=== PATIENT | female | born 1985 | race Caucasian/White ===

== ENCOUNTER 2021-04-16 06:10 | Inpatient (IN) | payer OTHER ==
[2021-04-16] MEDS ORDERED: ELECTROLYTE-148 SOLN 500 ML IV ONE (06:30)
[2021-04-16 06:46] VITALS: BMI 31.1
[2021-04-16] MEDS ORDERED: CITRIC ACID/SODIUM CITRATE 30 ML UNIT-DOSE CUP PO ONE (07:00)
[2021-04-16] MEDS ORDERED: ELECTROLYTE-148 SOLN 1,000 ML IV SCH (07:00)
[2021-04-16] MEDS ORDERED: PHENYLEPHRINE HCL 10 MG/1 ML SINGLE DOSE VIAL ONE (08:03)
[2021-04-16] MEDS ORDERED: morphine SULFATE (PF) 1 MG/2 ML SYRINGE ONE (08:03)
[2021-04-16] MEDS ORDERED: ePHEDrine SULFATE 50 MG/1 ML AMPULE ONE (08:03)
[2021-04-16] MEDS ORDERED: SODIUM CHLORIDE 0.9% P/F 10 ML VIAL IJ ONE (08:03)
[2021-04-16] MEDS ORDERED: OXYTOCIN 20 UNITS in 0.9% NS 20 UNIT/1,000 ML INFUS.BAG IV ONE (08:08)
[2021-04-16] MEDS: OXYTOCIN 20 UNITS in 0.9% NS 20 UNIT/1,000 ML INFUS.BAG IV SCH ×2 (08:40→16:00)
[2021-04-16] MEDS ORDERED: ONDANSETRON 4 MG/2 ML VIAL IVPUSH PRN (09:27)
[2021-04-16] MEDS ORDERED: morphine SULFATE/PF 1 MG/2 ML (2cc Syringe - QUVA) EP ONE (09:27)
[2021-04-16] MEDS ORDERED: METHYLERGONOVINE MALEATE 0.2 MG/1 ML AMP IM PRN (10:04)
[2021-04-16] MEDS ORDERED: ACETAMINOPHEN 325 MG TABLET (FP) PO PRN (10:04)
[2021-04-16] MEDS ORDERED: IBUPROFEN 800 MG/8 ML IJ IVPB PRN (10:04)
[2021-04-16] MEDS ORDERED: IBUPROFEN 800 MG/8 ML IJ IVPB ONE (10:35)
[2021-04-16] MEDS: IBUPROFEN 600 MG TABLET (FP) PO PRN (20:30)
[2021-04-16] MEDS: SIMETHICONE 80 MG TAB.CHEW (FP) PO PRN (20:30)
[2021-04-16] MEDS ORDERED: oxyCODONE HCL 5 MG TABLET PO PRN ×2 (22:04)
[2021-04-17] MEDS: IBUPROFEN 600 MG TABLET (FP) PO PRN ×5 (01:53→20:46)
[2021-04-17] MEDS: SIMETHICONE 80 MG TAB.CHEW (FP) PO PRN ×3 (01:54→13:50)
[2021-04-17 08:29] LABS: BASO % 0.2 % (0-2.0); EOS % 0.9 % (0-4.5); HEMOGLOBIN 11.4 GM/dL (10.7-15.3); LYMPH % 15.5 % (8-40); MCH 29.3 pg (25.7-33.7); MCHC 33.6 g/dl (32.0-36.0); MEAN CELL VOLUME 87.5 fl (80-96); MEAN PLT VOLUME 8.7 fl (7.5-11.1); NEUT % 76.4 % (42.8-82.8); PLATELET COUNT 241 10^3/uL (134-434); RBC 3.89 M/mm3 (3.60-5.2); RDW 13.7 % (11.6-15.6); WHITE BLOOD COUNT 12.4 K/mm3 (4.0-10.0)
[2021-04-17] MEDS: ELECTROLYTE-148 SOLN 1,000 ML IV SCH (09:12)
[2021-04-17] MEDS ORDERED: BISACODYL 10 MG SUPP.RECT RC PRN (10:04)
[2021-04-18] MEDS: IBUPROFEN 600 MG TABLET (FP) PO PRN ×3 (00:11→12:19)
[2021-04-18] MEDS: SIMETHICONE 80 MG TAB.CHEW (FP) PO PRN ×3 (03:55→12:17)
[2021-04-18] MEDS: ELECTROLYTE-148 SOLN 1,000 ML IV SCH (08:07)
[2021-04-18] MEDS: ACETAMINOPHEN 325 MG TABLET (FP) PO PRN ×3 (08:12→21:36)
[2021-04-19] MEDS: IBUPROFEN 600 MG TABLET (FP) PO PRN ×2 (01:22→11:12)
[2021-04-19] MEDS: ACETAMINOPHEN 325 MG TABLET (FP) PO PRN (06:45)
[2021-04-19 07:56] LABS: BASO % 0.4 % (0-2.0); HEMATOCRIT 37.1 % (32.4-45.2); HEMOGLOBIN 12.6 GM/dL (10.7-15.3); LYMPH % 18.3 % (8-40); MCH 29.6 pg (25.7-33.7); MEAN CELL VOLUME 87.1 fl (80-96); MONO % 5.9 % (3.8-10.2); NEUT % 73.4 % (42.8-82.8); PLATELET COUNT 320 10^3/uL (134-434); RBC 4.26 M/mm3 (3.60-5.2); RDW 14.2 % (11.6-15.6); WHITE BLOOD COUNT 12.6 K/mm3 (4.0-10.0)
[2021-04-19 09:31] VITALS: BP 99/65; PULSE 87; TEMP 98.2
[2021-04-19] MEDS: SIMETHICONE 80 MG TAB.CHEW (FP) PO PRN (11:15)
== END 2021-04-19 13:00 | disposition home or self-care (01) | DRG 788 ==
LOC: JLDR 06:10 → J3W 10:40
PROVIDERS: ADMIT Specialist; ATTEND Specialist
PROC: 10D00Z1 Extraction of Products of Conception, Low, Open Approach (ICD-10-PCS; principal; 2021-04-16)
DX: O32.1XX0 Maternal care for breech presentation, not applicable or unspecified (principal); Z3A.39 39 weeks gestation of pregnancy; Z37.0 Single live birth
CPT/HCPCS: 36415; 85025; 88307-TC

== ENCOUNTER 2023-06-07 06:35 | Inpatient (IN) | payer OTHER, BC ==
[2023-06-07] MEDS ORDERED: ELECTROLYTE-148 SOLN 500 ML IV ONE (09:39)
[2023-06-07] MEDS ORDERED: CITRIC ACID/SODIUM CITRATE 30 ML UNIT-DOSE CUP PO ONE (09:39)
[2023-06-07 10:01] VITALS: BMI 29.9
[2023-06-07] MEDS ORDERED: morphine SULFATE/PF 1 MG/2 ML (2cc Syringe - QUVA) ONE (10:18)
[2023-06-07] MEDS ORDERED: FENTANYL CITRATE/PF 50 MCG/ML VIAL ONE (10:18)
[2023-06-07] MEDS ORDERED: ONDANSETRON 4 MG/2 ML VIAL ONE (10:18)
[2023-06-07] MEDS ORDERED: OXYTOCIN 10 UNITS/ML VIAL ONE (10:18)
[2023-06-07] MEDS ORDERED: KETOROLAC TROMETHAMINE 30 MG/1 ML VIAL ONE (10:18)
[2023-06-07] MEDS ORDERED: ceFAZolin SODIUM 1 GM VIAL ONE (10:42)
[2023-06-07] MEDS ORDERED: oxyCODONE HCL 5 MG TABLET PO PRN (12:17)
[2023-06-07] MEDS ORDERED: ONDANSETRON 4 MG/2 ML VIAL IVPB PRN (12:17)
[2023-06-07] MEDS ORDERED: HEPARIN NA (PORCINE) 5,000 UNITS/ML 1ML VIAL SQ SCH (14:00)
[2023-06-07] MEDS: ACETAMINOPHEN 325 MG TABLET (FP) PO SCH ×2 (14:27→18:34)
[2023-06-07] MEDS ORDERED: OXYTOCIN 20 UNITS in 0.9% NS 20 UNIT/1,000 ML INFUS.BAG IV ONE (15:00)
[2023-06-07] MEDS: OXYTOCIN 20 UNITS in 0.9% NS 20 UNIT/1,000 ML INFUS.BAG IV SCH (15:01)
[2023-06-07] MEDS ORDERED: ACETAMINOPHEN 1000 MG/100 ML BAG IVPB PRN (16:39)
[2023-06-07] MEDS ORDERED: CEFAZOLIN 2 GM in DEXTROSE 5%-WATER - 50 ML IVPB SCH (18:00)
[2023-06-07] MEDS: CEFAZOLIN SODIUM 2 GM in DEXTROSE 5%-WATER 100 ML IVPB SCH (18:17)
[2023-06-07] MEDS: IBUPROFEN 800 MG/8 ML IJ IVPB PRN (20:31)
[2023-06-07] MEDS: SENNOSIDES/DOCUSATE COMBO (SENNA PLUS) TABLET (UD) PO SCH ×2 (20:32→21:19)
[2023-06-07] MEDS: SIMETHICONE 80 MG TAB.CHEW (FP) PO PRN (20:32)
[2023-06-08] MEDS: OXYTOCIN 20 UNITS in 0.9% NS 20 UNIT/1,000 ML INFUS.BAG IV SCH
[2023-06-08] MEDS: ACETAMINOPHEN 325 MG TABLET (FP) PO SCH ×2 (00:16→06:11)
[2023-06-08] MEDS: CEFAZOLIN SODIUM 2 GM in DEXTROSE 5%-WATER 100 ML IVPB SCH (01:12)
[2023-06-08] MEDS: IBUPROFEN 800 MG/8 ML IJ IVPB PRN ×2 (03:04→11:31)
[2023-06-08 07:37] LABS: BASO % 0.2 % (0-2.0); HEMATOCRIT 33.6 % (32.4-45.2); HEMOGLOBIN 11.1 GM/dL (10.7-15.3); LYMPH % 13.2 % (8-40); MCH 27.9 pg (25.7-33.7); MCHC 33.2 g/dl (32.0-36.0); MEAN PLT VOLUME 7.5 fl (7.5-11.1); MONO % 7.5 % (3.8-10.2); NEUT % 78.1 % (42.8-82.8); PLATELET COUNT 263 10^3/uL (134-434); RDW 14.5 % (11.6-15.6); WHITE BLOOD COUNT 13.9 K/mm3 (4.0-10.0)
[2023-06-08] MEDS ORDERED: BISACODYL 10 MG SUPP.RECT RC PRN (12:17)
[2023-06-08] MEDS: IBUPROFEN 600 MG TABLET (FP) PO PRN (21:02)
[2023-06-08] MEDS: SIMETHICONE 80 MG TAB.CHEW (FP) PO PRN (21:02)
[2023-06-08] MEDS: SENNOSIDES/DOCUSATE COMBO (SENNA PLUS) TABLET (UD) PO SCH (21:02)
[2023-06-09] MEDS: SIMETHICONE 80 MG TAB.CHEW (FP) PO PRN ×3 (03:44→12:37)
[2023-06-09] MEDS: IBUPROFEN 600 MG TABLET (FP) PO PRN ×3 (03:44→12:37)
[2023-06-09 11:29] VITALS: BP 108/63; PULSE 81; RESP 16; TEMP 98.5
== END 2023-06-09 15:35 | disposition home or self-care (01) | DRG 788 ==
LOC: JLDR 06:35 → J3W 15:10
PROVIDERS: ADMIT Specialist; ATTEND Specialist
PROC: 10D00Z1 Extraction of Products of Conception, Low, Open Approach (ICD-10-PCS; principal; 2023-06-07)
PROC: 0HB7XZZ Excision of Abdomen Skin, External Approach (ICD-10-PCS; 2023-06-07)
DX: O34.211 Maternal care for low transverse scar from previous cesarean delivery (principal); Z3A.39 39 weeks gestation of pregnancy; Z37.0 Single live birth; O75.89 Other specified complications of labor and delivery; L91.0 Hypertrophic scar
CPT/HCPCS: 36415; 85025; 88304-TC; 88307-TC; 94010; J0131